=== PATIENT | female | born 1975 | race Caucasian/White ===

== ENCOUNTER → 2017-01-25 | Outpatient (CLI) | payer BC ==
--- NOTE | 2017-01-25 14:16 | US ---
EXAM DATE: 01/25/17 PATIENT'S AGE: 41 Patient: FORTUNATO FAUST Facility: [place], [place] Site Site : 1975 Study: US Extremity Right [id number]/[id number] 11:29:11 AM Ordering Physician: EJ KUMAR Final Report: INDICATION: Pain and swelling right leg. Lumps felt also. TECHNIQUE: Ultrasound venous duplex lower right extremity. Compression venous exam was performed using troncoso-scale, color Doppler, and spectral Doppler imaging. COMPARISON: None. FINDINGS: Sonographic imaging demonstrates the right common femoral, deep femoral, superficial femoral, popliteal, posterior tibial, peroneal and greater saphenous and the contralateral left common femoral veins to be fully compressible with normal color Doppler blood flow. Remainder negative. IMPRESSION: Normal right lower extremity venous ultrasound without evidence of DVT. No sonographic abnormality in the right thigh in the regions of palpable abnormalities Dictated by Eddie Hernandez MD @ Jan 25 2017 1:24PM (Electronic Signature) Report Signed by Proxy and Original Signed Document filed in the Medical Record. ZHANE
== END | disposition home or self-care (01) ==
LOC: MW.US 10:37
PROVIDERS: ATTEND Nurse Practitioner Adult Health
DX: M79.604 Pain in right leg (principal); R60.9 Edema, unspecified
CPT/HCPCS: 93971-26-RT; 93971-RT

== ENCOUNTER → 2017-02-07 | Outpatient (CLI) | payer BC ==
--- NOTE | 2017-02-07 13:06 | MY ---
EXAMINATION: Bilateral digital mammography utilizing CAD. HISTORY: Screening exam. Baseline. FINDINGS: Bilateral predominantly fatty tissue. No suspicious calcifications, masses or architectu ral distortions. No pathologic appearing lymph nodes, no abnormal skin thickening or nipple invers ion. CAD highlighted regions appear normal at this time. IMPRESSION: BI-RADS category I - negative mammogram. Continued screening according to ACR-ACS gu idelines suggested. THE FALSE-NEGATIVE RATE OF MAMMOGRAM IS APPROXIMATELY 10%. MANAGEMENT OF A PALPABLE ABNORMALITY MUST BE BASED UPON CLINICAL GROUNDS. SENSITIVITY FOR DETECTION OF ABNORMALITIES IN DENSE BREASTS IS LOW. NOTE: A letter will be sent to the patient regarding findings. [facility] -- NARA Schwartz [phone] - FAX [phone]
== END | disposition home or self-care (01) ==
LOC: MW.MAM 08:44
PROVIDERS: ATTEND Obstetrics & Gynecology
DX: Z12.31 Encounter for screening mammogram for malignant neoplasm of breast (principal)
CPT/HCPCS: G0202; G0202-26

== ENCOUNTER → 2017-02-09 | Outpatient (CLI) | payer BC ==
--- NOTE | 2017-02-10 08:59 | CR ---
EXAMINATION: Right knee HISTORY: Pain COMPARISON: None TECHNIQUE: 4 views FINDINGS/IMPRESSION: There is no acute osseous abnormality, dislocation, or fracture identified. Bon e mineralization and joint spaces appear preserved. No joint effusion or soft tissue swelling.
== END ==
LOC: MW.DI 11:46
PROVIDERS: ATTEND Surgery
DX: M79.604 Pain in right leg (principal)
CPT/HCPCS: 73564-26-RT; 73564-RT

== ENCOUNTER 2017-02-10 08:09 | Day surgery (SDC) | payer BC ==
[2017-02-09 14:51] LABS: CHLORIDE,CL 106 mmol/L (98-110); SODIUM,NA 140 mmol/L (136-146)
[~2017-02-10 08:09] MED LIST: Fluorescein 5 ML Vial ONE; Lactated Ringers 1,000 ML IV SCH; Sodium Chloride 0.9% 10 ML Syringe FLUSH PRN; Sodium Chloride 0.9% 2.5 ML Syringe FLUSH PRN; ceFAZolin 2 GM in Premix Bag 1 BAG IV ONE
[2017-02-10] MEDS ORDERED: Propofol 200 MG/20 ML SDV ONE (08:18)
[2017-02-10] MEDS ORDERED: Midazolam 1 MG/ML 2 ML SDV ONE (08:18)
[2017-02-10] MEDS ORDERED: Rocuronium 10 MG/ML 10 ML Syringe ONE (08:18)
[2017-02-10] MEDS ORDERED: Ondansetron 4 MG/2 ML SDV ONE (08:18)
[2017-02-10] MEDS ORDERED: Dexamethasone 4 MG/ML 5 ML MDV ONE (08:18)
[2017-02-10] MEDS ORDERED: fentaNYL 250 MCG/5 ML SDV ONE (08:19)
[2017-02-10] MEDS ORDERED: Octyl 2-Cyanoacrylate 1 Tube ONE (08:37)
[2017-02-10] MEDS ORDERED: Clindamycin Phosphate in D5W 600 MG in Premix Bag 50 BAG IV ONE ×2 (08:50)
[2017-02-10] MEDS ORDERED: Scopolamine 1.5 MG Transdermal Patch TRDERM PRN (08:54)
--- NOTE | 2017-02-10 09:04 | PCM.PREANE ---
Preanesthetic Assessment - Anesthesia/Transfusion/Family Hx Anesthesia History: Prior Anesthesia Reaction Type of Anesthesia Reaction: Excessive Nausea/Vomiting Family History of Anesthesia Reaction: No Transfusion History: No Prior Transfusion(s) Intubation History: Unknown - Review of Systems General: No Symptoms Pulmonary: No Symptoms Cardiovascular: No Symptoms Gastrointestinal: No symptoms Neurological: No Symptoms Other: Reports: None - Physical Assessment NPO Status Date: 02/09/17 NPO Status Time: 17:30 O2 Sat by Pulse Oximetry: 95 Respiratory Rate: 16 Vital Signs: Last Vital Signs Temp 36.6 C 02/10/17 08:28 Pulse 87 02/10/17 08:28 Resp 16 02/10/17 08:28 BP 128/89 02/10/17 08:28 Pulse Ox 95 02/10/17 08:28 Height: 1.65 m Weight: 119.748 kg ASA Class: 2 Mental Status: Alert & Oriented x3 Airway Class: Mallampati = 2 Dentition: Reports: Dentures (upper) Thyro-Mental Finger Breadths: 3 Mouth Opening Finger Breadths: 2 ROM/Head Extension: Full Lungs: Clear to auscultation, Normal respiratory effort Cardiovascular: Regular Rate, Regular Rhythm - Lab Values: Laboratory Last Values WBC 7.22 K/uL (4.0-11.0) 02/09/17 14:19 RBC 4.60 M/uL (4.30-5.90) 02/09/17 14:19 Hgb 14.6 g/dL (12.0-16.0) 02/09/17 14:19 Hct 42.0 % (36.0-46.0) 02/09/17 14:19 MCV 91.3 fL (80.0-98.0) 02/09/17 14:19 MCH 31.7 pg (27.0-32.0) 02/09/17 14:19 MCHC 34.8 g/dL (31.0-37.0) 02/09/17 14:19 RDW Std Deviation 46.0 fl (28.0-62.0) 02/09/17 14:19 RDW Coeff of Seda 14 % (11.0-15.0) 02/09/17 14:19 Plt Count 202 K/uL (150-400) 02/09/17 14:19 MPV 8.70 fL (7.40-12.00) 02/09/17 14:19 Nucleated RBC % 0.0 /100WBC 02/09/17 14:19 Nucleated RBCs # 0 K/uL 02/09/17 14:19 Sodium 140 mmol/L (136-146) 02/09/17 14:19 Potassium 4.0 mmol/L (3.5-5.1) 02/09/17 14:19 Chloride 106 mmol/L (98-110) 02/09/17 14:19 Carbon Dioxide 26 mmol/L (21-31) 02/09/17 14:19 BUN 16 mg/dL (6.0-23.0) 02/09/17 14:19 Creatinine 0.7 mg/dL (0.6-1.5) 02/09/17 14:19 Est Cr Clr Drug Dosing 93.25 mL/min 02/09/17 14:19 Estimated GFR (MDRD) > 60.0 ml/min 02/09/17 14:19 Glucose 93 mg/dL (60-110) 02/09/17 14:19 Calcium 9.2 mg/dL (8.8-10.8) 02/09/17 14:19 HCG, Qual NEGATIVE (NEG) 02/09/17 14:19 Blood Type O POSITIVE 02/09/17 14:19 Antibody Screen NEGATIVE 02/09/17 14:19 - Allergies Allergies/Adverse Reactions: Allergies Allergy/AdvReac Type Severity Reaction Status Date / Time aspirin Allergy rashes Verified 01/28/15 04:50 cephalexin Allergy Nausea and Verified 02/08/17 08:54 Vomiting naproxen Allergy Hives Verified 01/28/15 04:50 Sulfa (Sulfonamide Allergy Difficulty Verified 01/28/15 04:50 Antibiotics) Breathing - Blood Blood Available: No - Anesthesia Plan Pre-Op Medication Ordered: None - Acknowledgements Anesthesia Type Planned: General Anesthesia Pt an Appropriate Candidate for the Planned Anesthesia: Yes Alternatives and Risks of Anesthesia Discussed w Pt/Guardian: Yes Pt/Guardian Understands and Agrees with Anesthesia Plan: Yes PreAnesthesia Questionnaire HEENT History: Reports: Other (see below) Other HEENT History: top and bottom dentures, reading glasses Gastrointestinal History: Reports: GERD Genitourinary History: Reports: None 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: Dysfunctional uterine bleeding Endocrine/Metabolic History: Reports: Obesity/BMI 30+ - Past Surgical History Head Surgeries/Procedures: Reports: None HEENT Surgical History: Reports: Cataract surgery, Oral surgery, Other (see below) Other HEENT Surgeries/Procedures: hx eye surgery, radical mastroidectomy left ear x2 - SUBSTANCE USE Smoking Status *Q: Current Every Day Smoker (< 1/2 ppd) Tobacco Use Within Last Twelve Months: Cigarettes Days Per Week of Alcohol Use: 0 Recreational Drug Use History: No - HOME MEDS Home Medications: Home Meds Ondansetron HCl [Zofran] 8 mg PO ASDIRECTED PRN 02/08/17 [History] Suvorexant [Belsomra] 10 mg PO BEDTIME PRN 02/08/17 [History] - CURRENT (IN HOUSE) MEDS Current Meds: Current Medications Lactated Ringer's (Ringers, Lactated) 1,000 mls @ 500 mls/hr IV .BOLUS KELLEE Last Admin: 02/10/17 08:35 Dose: 500 mls/hr Clindamycin Phosphate 600 mg/ (Premix) 50 mls @ 100 mls/hr IV ONETIME ONE Stop: 02/10/17 09:19 Scopolamine (Transderm-Scop) 1.5 mg TRDERM Q72H PRN PRN Reason: Nausea Sodium Chloride (Saline Flush) 10 ml FLUSH ASDIRECTED PRN PRN Reason: Keep Vein Open Sodium Chloride (Saline Flush) 2.5 ml FLUSH ASDIRECTED PRN PRN Reason: Keep Vein Open Discontinued Medications Dexamethasone (Dexamethasone) Confirm Administered Dose 20 mg .ROUTE .STK-MED ONE Stop: 02/10/17 08:19 Fentanyl (Sublimaze) Confirm Administered Dose 250 mcg .ROUTE .STK-MED ONE Stop: 02/10/17 08:20 Fluorescein Sodium (Ak-Fluor) Confirm Administered Dose 5 ml .ROUTE .STK-MED ONE Stop: 02/10/17 07:30 Cefazolin Sodium/Dextrose 2 gm (/ Premix) 50 mls @ 100 mls/hr IV ONETIME ONE Stop: 02/09/17 09:10 Midazolam HCl (Versed 1 Mg/Ml) Confirm Administered Dose 2 mg .ROUTE .STK-MED ONE Stop: 02/10/17 08:19 Octyl Cyanoacrylate (Dermabond Advance) Confirm Administered Dose 1 applic .ROUTE .STK-MED ONE Stop: 02/10/17 08:38 Ondansetron HCl (Zofran) Confirm Administered Dose 4 mg .ROUTE .STK-MED ONE Stop: 02/10/17 08:19 Propofol (Diprivan 20 Ml) Confirm Administered Dose 200 mg .ROUTE .STK-MED ONE Stop: 02/10/17 08:19 Rocuronium [place] (Zemuron) Confirm Administered Dose 100 mg .ROUTE .STK-MED ONE Stop: 02/10/17 08:19
[2017-02-10] MEDS ORDERED: HYDROmorphone 2 MG/ML Syringe ONE (09:48)
[2017-02-10] MEDS ORDERED: Furosemide 40 MG/4 ML VIAL ONE (10:41)
[2017-02-10] MEDS ORDERED: Neostigmine Methylsulfate 1 MG/ML 5 ML Syringe ONE (10:52)
[2017-02-10] MEDS ORDERED: Promethazine 12.5 MG Supp RECTAL PRN (10:53)
[2017-02-10] MEDS ORDERED: Belladonna Alkaloids/Opium 16.2-30 MG Supp RECTAL ONE (10:56)
[2017-02-10] MEDS ORDERED: Ketorolac 30 MG/ML SDV IVPUSH ONE (11:17)
[2017-02-10] MEDS ORDERED: Acetaminophen/oxyCODONE 325-5 MG Tab PO PRN (11:17)
[2017-02-10] MEDS ORDERED: Promethazine 25 MG/ML SDV IM PRN (11:17)
[2017-02-10] MEDS ORDERED: Ondansetron 4 MG/2 ML SDV IVPUSH PRN (11:17)
[2017-02-10] MEDS ORDERED: Ketorolac 30 MG/ML SDV IVPUSH PRN (11:17)
[2017-02-10] MEDS ORDERED: Morphine 4 MG/ML Syringe IVPUSH PRN (11:17)
--- NOTE | 2017-02-10 11:21 | PCM.OPNOTE ---
- General Post-Op/Procedure Note Date of Surgery/Procedure: 02/10/17 Pre Op Diagnosis: Bleeding Post-Op Diagnosis: Same Anesthesia Technique: General ET tube Primary Surgeon: Augustine Lofton Gauge And Instrument Inspector: Anette Alarcon EBL in mLs: 125 Complications: None Condition: Good
[2017-02-10] MEDS: fentaNYL 100 MCG/2 ML SDV IVPUSH PRN ×2 (11:51→12:02)
[2017-02-10] MEDS ORDERED: Promethazine 12.5 MG Supp RECTAL ONE (12:07)
[2017-02-10] MEDS ORDERED: Lactated Ringers 1,000 ML IV SCH (15:30)
[2017-02-10] MEDS: Acetaminophen/HYDROcodone 325-7.5 MG Tab PO PRN (18:53)
--- NOTE | 2017-02-10 19:54 | OR ---
SURGEON: Augustine Lofton MD DATE OF PROCEDURE: PREOPERATIVE DIAGNOSES: 1. Menometrorrhagia. 2. Dysmenorrhea. POSTOPERATIVE DIAGNOSES: 1. Menometrorrhagia. 2. Dysmenorrhea. OPERATION PERFORMED: Total laparoscopic hysterectomy, laparoscopic bilateral salpingectomy preserving both ovaries. ONCOLOGY CONSULTANT: ALVINO Santo. ANESTHESIA: General endotracheal intubation, Petty Oneal and Dr. Granda. ESTIMATED BLOOD LOSS: 125 mL. COMPLICATION: None. FINDINGS: Uterus is about 10-week size. Both ovaries essentially are normal. INDICATION FOR SURGERY: Refer to the admit note. PROCEDURE IN DETAIL: The patient was brought to the OR, properly identified, and after adequate level of general anesthesia, the patient was placed in lithotomy position, prepped and draped in a sterile fashion as usual with an access to the abdomen and vagina. The Das catheter was placed in the bladder, and the manipulated cath lab manager was placed in the vagina and the uterus for manipulation and after inflated appropriately, the operation shifted abdominally. Stab wound done beneath the umbilicus. The Veress needle was placed in the peritoneal cavity and that cavity insufflated with 6 L of carbon dioxide. The skin incision was enlarged to accommodate the trocars and utilizing the Visiport technique, the central trocar was placed under direct vision. Then, three trocars, one 10/12 in the left iliac fossa and two 5 mm trocars one suprapubically and one in the right iliac fossa, was then done under direct vision. The patient was placed in the steep Trendelenburg at this time, and the operation was started by identifying the superior pedicles and the landmark of the pelvis. Using the CHELI-7 Harmonic scapula, the superior pedicle was coagulated and transected preserving both ovary and removing the tubes. The round ligament from both sides was coagulated and transected on both sides and then the anterior leaf of the broad ligament was dissected downward medially pushing the bladder completely away from the operative field. The uterine vessel at the level of the internal os was coagulated and transected with the CHELI-7. Now, at the level of the internal ring of the manipulator, a circular incision in the vaginal mucosa was done with the CHELI-7 and detaching the cervix from its attachment to the vagina. The cervix and uterus were removed vaginally, and pneumoperitoneum re-established by placing vaginal pack in the vagina. We proceeded to close the vaginal cuff laparoscopically using 2-0 PDS interrupted suture. A thorough irrigation of the operative field at this time showed no oozing and no bleeding. While we were closing the vagina, we asked the anesthesiologist to give the patient fluorescein and the Das catheter was removed. Cystoscopy was performed. The bladder was intact. Both ureteric orifices were seen with the dye coming from both of them. Thus, the patency of both ureters was verified. Satisfied with these findings, the procedure was ended. Instrument and sponge count was correct. The patient tolerated the procedure well and went to the recovery room in stable general condition. SANTY / MARTIN /[id number]
--- NOTE | 2017-02-10 21:13 | PCM48HPAN ---
Post Anesthesia Note - EVALUATION WITHIN 48HRS OF ANESTHETIC Vital Signs in Normal Range: Yes Patient Participated in Evaluation: Yes Respiratory Function Stable: Yes Airway Patent: Yes Cardiovascular Function Stable: Yes Hydration Status Stable: Yes Pain Control Satisfactory: Yes Nausea and Vomiting Control Satisfactory: Yes Mental Status Recovered: Yes - COMMENTS/OBSERVATIONS Free Text/Narrative:: Pt reports nausea and vomiting after eating cheeseburger s/p recovery. She was eating DQ blizzard at time of interview and stated it tasted good and was "sitting OK". She denied any other problems associated with anesthesia.
[2017-02-11] MEDS: Acetaminophen/HYDROcodone 325-7.5 MG Tab PO PRN (04:23)
[2017-02-11 06:10] LABS: CHLORIDE,CL 108 mmol/L (98-110); SODIUM,NA 139 mmol/L (136-146)
--- NOTE | 2017-02-11 08:34 | PCM.SURGPN ---
- General Info Date of Service: 02/11/17 Functional Status: Reports: pain controlled - Review of Systems General: Reports: No Symptoms HEENT: Reports: no symptoms Pulmonary: Reports: no symptoms Cardiovascular: Reports: No Symptoms Gastrointestinal: Reports: No symptoms Genitourinary: Reports: no symptoms Musculoskeletal: Reports: no symptoms Skin: Reports: no symptoms Neurological: Reports: No Symptoms Psychiatric: Reports: no symptoms - Patient Data Vitals - most recent: Last Vital Signs Temp 36.9 C 02/11/17 04:00 Pulse 88 02/11/17 04:00 Resp 16 02/11/17 04:00 BP 103/61 02/11/17 04:00 Pulse Ox 90 L 02/11/17 04:00 Weight - most recent: 119.748 kg I&O - last 24 hours: Intake & Output 02/10/17 02/11/17 02/11/17 22:59 06:59 14:59 Intake Total 850 1200 Output Total 800 900 Balance 50 300 Lab Results last 24 hrs: Laboratory Results - last 24 hr 02/11/17 02/11/17 Range/Units 04:50 04:50 WBC 10.58 (4.0-11.0) K/uL RBC 4.15 L (4.30-5.90) M/uL Hgb 12.7 (12.0-16.0) g/dL Hct 38.4 (36.0-46.0) % MCV 92.5 (80.0-98.0) fL MCH 30.6 (27.0-32.0) pg MCHC 33.1 (31.0-37.0) g/dL RDW Std Deviation 47.0 (28.0-62.0) fl RDW Coeff of Seda 14 (11.0-15.0) % Plt Count 224 (150-400) K/uL MPV 9.00 (7.40-12.00) fL Neut % (Auto) 77.5 (48.0-80.0) % Lymph % (Auto) 16.1 (16.0-40.0) % Miner % (Auto) 6.3 (0.0-15.0) % Eos % (Auto) 0.0 (0.0-7.0) % Baso % (Auto) 0.1 (0.0-1.5) % Neut # (Auto) 8.2 H (1.4-5.7) K/uL Lymph # (Auto) 1.7 (0.6-2.4) K/uL Miner # (Auto) 0.7 (0.0-0.8) K/uL Eos # (Auto) 0.0 (0.0-0.7) K/uL Baso # (Auto) 0.0 (0.0-0.1) K/uL Nucleated RBC % 0.0 /100WBC Nucleated RBCs # 0 K/uL Sodium 139 (136-146) mmol/L Potassium 4.3 (3.5-5.1) mmol/L Chloride 108 (98-110) mmol/L Carbon Dioxide 22 (21-31) mmol/L BUN 11 (6.0-23.0) mg/dL Creatinine 0.7 (0.6-1.5) mg/dL Est Cr Clr Drug Dosing 93.25 mL/min Estimated GFR (MDRD) > 60.0 ml/min Glucose 105 (60-110) mg/dL Calcium 8.8 (8.8-10.8) mg/dL Med Orders - Current: Current Medications Hydrocodone Bitart/Acetaminophen (Superior 325-7.5 Mg) 2 tab PO Q4H PRN PRN Reason: Pain Last Admin: 02/11/17 04:23 Dose: 1 tab Fentanyl (Sublimaze) 50 mcg IVPUSH SEECOMMENT PRN PRN Reason: Pain (moderate 4-6) Last Admin: 02/10/17 12:02 Dose: 50 mcg Lactated Ringer's (Ringers, Lactated) 1,000 mls @ 500 mls/hr IV .BOLUS KELLEE Last Admin: 02/10/17 08:35 Dose: 500 mls/hr Lactated Ringer's (Ringers, Lactated) 1,000 mls @ 100 mls/hr IV ASDIRECTED KELLEE Last Infusion: 02/10/17 22:00 Dose: 100 mls/hr Ketorolac Tromethamine (Toradol) 30 mg IVPUSH Q6H PRN PRN Reason: Pain (severe 7-10) Stop: 02/15/17 11:17 Morphine Sulfate (Morphine) 4 mg IVPUSH Q2H PRN PRN Reason: Pain (severe 7-10) Ondansetron HCl (Zofran) 4 mg IVPUSH Q6H PRN PRN Reason: Nausea/Vomiting Last Admin: 02/10/17 17:08 Dose: 4 mg Promethazine HCl (Phenadoz) 12.5 - 25 mg RECTAL ASDIRECTED PRN PRN Reason: Nausea/Vomiting Last Admin: 02/10/17 12:17 Dose: 12.5 mg Promethazine HCl (Phenergan) 25 mg IM Q6H PRN PRN Reason: Nausea/Vomiting Last Admin: 02/10/17 18:57 Dose: 25 mg Scopolamine (Transderm-Scop) 1.5 mg TRDERM Q72H PRN PRN Reason: Nausea Last Admin: 02/10/17 09:00 Dose: 1.5 mg Sodium Chloride (Saline Flush) 10 ml FLUSH ASDIRECTED PRN PRN Reason: Keep Vein Open Sodium Chloride (Saline Flush) 2.5 ml FLUSH ASDIRECTED PRN PRN Reason: Keep Vein Open Discontinued Medications Belladonna Alkaloids/Opium (B & O Supprettes No. 15a) 1 supp RECTAL ONETIME ONE Stop: 02/10/17 10:57 Last Admin: 02/10/17 14:24 Dose: Not Given Dexamethasone (Dexamethasone) Confirm Administered Dose 20 mg .ROUTE .STK-MED ONE Stop: 02/10/17 08:19 Fentanyl (Sublimaze) Confirm Administered Dose 250 mcg .ROUTE .STK-MED ONE Stop: 02/10/17 08:20 Fluorescein Sodium (Ak-Fluor) Confirm Administered Dose 5 ml .ROUTE .STK-MED ONE Stop: 02/10/17 07:30 Furosemide (Lasix) Confirm Administered Dose 40 mg .ROUTE .STK-MED ONE Stop: 02/10/17 10:42 Glycopyrrolate () Confirm Administered Dose 1 mg .ROUTE .STK-MED ONE Stop: 02/10/17 10:53 Hydromorphone HCl (Dilaudid) Confirm Administered Dose 2 mg .ROUTE .STK-MED ONE Stop: 02/10/17 09:49 Cefazolin Sodium/Dextrose 2 gm (/ Premix) 50 mls @ 100 mls/hr IV ONETIME ONE Stop: 02/09/17 09:10 Last Admin: 02/10/17 14:24 Dose: Not Given Clindamycin Phosphate 600 mg/ (Premix) 50 mls @ 100 mls/hr IV ONETIME ONE Stop: 02/10/17 09:19 Last Admin: 02/10/17 09:01 Dose: 100 mls/hr Ketorolac Tromethamine (Toradol) 30 mg IVPUSH ONETIME ONE Stop: 02/10/17 11:18 Last Admin: 02/10/17 12:01 Dose: 30 mg Midazolam HCl (Versed 1 Mg/Ml) Confirm Administered Dose 2 mg .ROUTE .STK-MED ONE Stop: 02/10/17 08:19 Neostigmine Methylsulfate (Neostigmine) Confirm Administered Dose 5 mg .ROUTE .STK-MED ONE Stop: 02/10/17 10:53 Octyl Cyanoacrylate (Dermabond Advance) Confirm Administered Dose 1 applic .ROUTE .STK-MED ONE Stop: 02/10/17 08:38 Ondansetron HCl (Zofran) Confirm Administered Dose 4 mg .ROUTE .STK-MED ONE Stop: 02/10/17 08:19 Oxycodone/Acetaminophen (Percocet 325-5 Mg) 2 tab PO Q4H PRN PRN Reason: Pain (moderate 4-6) Promethazine HCl (Phenadoz) 12.5 mg RECTAL ONETIME ONE Stop: 02/10/17 12:08 Last Admin: 02/10/17 12:13 Dose: 12.5 mg Propofol (Diprivan 20 Ml) Confirm Administered Dose 200 mg .ROUTE .STK-MED ONE Stop: 02/10/17 08:19 Rocuronium [place] (Zemuron) Confirm Administered Dose 100 mg .ROUTE .STK-MED ONE Stop: 02/10/17 08:19 - Exam Wound/Incisions: healing well General: alert, oriented HEENT: Pupils equal Neck: supple Lungs: Clear to auscultation, Normal respiratory effort Cardiovascular: Regular Rate, Regular Rhythm Abdomen: bowel sounds present, soft, no tenderness, no distension Extremities: no edema Skin: warm, dry, intact Neurological: no new focal deficit Psy/Mental Status: alert, normal affect, normal mood - Problem List Review Problem List Initiated/Reviewed/Updated: Yes - My Orders Last 24 Hours: Active Orders 24 hr Category Date Time Status Patient Status [ADT] Routine ADT 02/10/17 11:17 Active Antiembolic Devices [RC] Q12H Care 02/10/17 11:18 Active Communication Order [RC] ROUTINE Care 02/10/17 15:30 Active Notify Provider Vital Signs [RC] ASDIRECTED Care 02/10/17 11:17 Active RT Incentive Spirometry [RC] Q2HWA Care 02/10/17 11:17 Active Up With Assistance [RC] PER UNIT ROUTINE Care 02/10/17 11:17 Active Up ad Delfina [RC] PER UNIT ROUTINE Care 02/10/17 11:17 Active Urinary Catheter Removal [RC] Per Unit Routine Care 02/10/17 11:17 Active Regular Diet [DIET] Diet 02/10/17 Dinner Active Acetaminophen/HYDROcodone [Superior 325-7.5 MG] Med 02/10/17 17:57 Active 2 tab PO Q4H PRN Ketorolac [Toradol] Med 02/10/17 11:17 Active 30 mg IVPUSH Q6H PRN Lactated Ringers [Ringers, Lactated] 1,000 ml Med 02/10/17 15:30 Active IV ASDIRECTED Morphine Med 02/10/17 11:17 Active 4 mg IVPUSH Q2H PRN Ondansetron [Zofran] Med 02/10/17 11:17 Active 4 mg IVPUSH Q6H PRN Promethazine [Phenadoz] Med 02/10/17 10:53 Active 12.5 - 25 mg RECTAL ASDIRECTED PRN Promethazine [Phenergan] Med 02/10/17 11:17 Active 25 mg IM Q6H PRN Scopolamine [Transderm-Scop] Med 02/10/17 08:54 Active 1.5 mg TRDERM Q72H PRN fentaNYL [Sublimaze] Med 02/10/17 10:53 Active 50 mcg IVPUSH SEECOMMENT PRN Peripheral IV Discontinue [OM.PC] Routine Oth 02/10/17 11:17 Ordered Sequential Compression Device [OM.PC] Per Unit Routine Oth 02/10/17 11:17 Ordered Resuscitation Status Routine Resus Stat 02/10/17 11:17 Ordered Medication Orders Hydrocodone Bitart/Acetaminophen (Superior 325-7.5 Mg) 2 tab PO Q4H PRN PRN Reason: Pain Last Admin: 02/11/17 04:23 Dose: 1 tab Admin: 02/10/17 18:53 Dose: 1 tab Fentanyl (Sublimaze) 50 mcg IVPUSH SEECOMMENT PRN PRN Reason: Pain (moderate 4-6) Last Admin: 02/10/17 12:02 Dose: 50 mcg Admin: 02/10/17 11:51 Dose: 50 mcg Lactated Ringer's (Ringers, Lactated) 1,000 mls @ 500 mls/hr IV .BOLUS KELLEE Last Admin: 02/10/17 08:35 Dose: 500 mls/hr Lactated Ringer's (Ringers, Lactated) 1,000 mls @ 100 mls/hr IV ASDIRECTED KELLEE Last Infusion: 02/10/17 22:00 Dose: 100 mls/hr Admin: 02/10/17 15:30 Dose: 100 mls/hr Ketorolac Tromethamine (Toradol) 30 mg IVPUSH Q6H PRN PRN Reason: Pain (severe 7-10) Stop: 02/15/17 11:17 Morphine Sulfate (Morphine) 4 mg IVPUSH Q2H PRN PRN Reason: Pain (severe 7-10) Ondansetron HCl (Zofran) 4 mg IVPUSH Q6H PRN PRN Reason: Nausea/Vomiting Last Admin: 02/10/17 17:08 Dose: 4 mg Promethazine HCl (Phenadoz) 12.5 - 25 mg RECTAL ASDIRECTED PRN PRN Reason: Nausea/Vomiting Last Admin: 02/10/17 12:17 Dose: 12.5 mg Promethazine HCl (Phenergan) 25 mg IM Q6H PRN PRN Reason: Nausea/Vomiting Last Admin: 02/10/17 18:57 Dose: 25 mg Scopolamine (Transderm-Scop) 1.5 mg TRDERM Q72H PRN PRN Reason: Nausea Last Admin: 02/10/17 09:00 Dose: 1.5 mg Sodium Chloride (Saline Flush) 10 ml FLUSH ASDIRECTED PRN PRN Reason: Keep Vein Open Sodium Chloride (Saline Flush) 2.5 ml FLUSH ASDIRECTED PRN PRN Reason: Keep Vein Open - Assessment Assessment (Free Text/Narrative):: Status post T. LH postoperative day #1 on regular diet tolerated very well her vital sign was stable have lab work is within normal limit the patient is going home today post hysterectomy instruction is given - Plan Plan (Free Text/Narrative):: Prescription for Percocet 7.5/325 for postoperative pain is given the patient instructed to come to the office 2 weeks from discharge
[2017-02-11 10:15] VITALS: BP 97/56
== END 2017-02-11 09:41 | disposition home or self-care (01) ==
LOC: MW.SDS 08:09 → MW.MS 11:17 → MW.SDS 02-11 09:41
PROVIDERS: ATTEND Obstetrics & Gynecology
DX: N84.0 Polyp of corpus uteri (principal); N94.6 Dysmenorrhea, unspecified; N92.1 Excessive and frequent menstruation with irregular cycle
CPT/HCPCS: 36415; 58571; 80048; 84703; 85025; 85027; 86850; 86900; 86901; A9270; J1100; J1170; J1885; J1940; J2250; J2405; J2550; J3010; J7120; 00944; 88307; J2704

== ENCOUNTER 2017-09-08 16:26 | Emergency (ER) | payer BC ==
[2017-09-08] MEDS ORDERED: Ibuprofen 800 MG Tab PO ONE (16:42)
--- NOTE | 2017-09-08 17:14 | EDM.PDOC ---
ED HPI GENERAL MEDICAL PROBLEM - General Chief Complaint: Lower Extremity Injury/Pain Stated Complaint: PT HURT RT KNEE Time Seen by Provider: 09/08/17 16:27 Source of Information: Reports: Patient History Limitations: Reports: No Limitations - History of Present Illness INITIAL COMMENTS - FREE TEXT/NARRATIVE: History of present illness: []Patient was in a hotel in [place] and the floor was wet in the bathroom when she slipped and landed on that medial part of her right knee. She has no problem ambulating but has pain on the medial part of her knee. Review of systems: As per history of present illness and below otherwise all systems reviewed and negative. Past medical history: As per history of present illness and as reviewed below otherwise noncontributory. Surgical history: As per history of present illness and as reviewed below otherwise noncontributory. Social history: No reported history of drug or alcohol abuse. Family history: As per history of present illness and as reviewed below otherwise noncontributory. Physical exam: General: Well developed, well nourished in NAD HEENT: Atraumatic, normocephalic, pupils reactive, negative for conjunctival pallor or scleral icterus, mucous membranes moist, throat clear, neck supple, nontender, trachea midline. Lungs: Clear to auscultation, breath sounds equal bilaterally, chest nontender. Heart: S1S2, regular, negative for clicks, rubs, or JVD. Abdomen: Soft, nondistended, nontender. Negative for masses or hepatosplenomegaly. Negative for costovertebral tenderness. Pelvis: Stable nontender. Genitourinary: Deferred. Rectal: Deferred. Extremities: Atraumatic, negative for cords or calf pain. Neurovascular unremarkable. Neuro: Awake, alert, oriented. Cranial nerves II through XII unremarkable. Cerebellum unremarkable. Motor and sensory unremarkable throughout. Exam nonfocal. Diagnostics: []X-ray negative for fracture normal alignment Therapeutics: []Ibuprofen Impression: []Right knee sprain Plan: []Ice, elevate, ibuprofen and follow-up with orthopedics if symptoms persist. Definitive disposition and diagnosis as appropriate pending reevaluation and review of above. Right Knee Pain Score (Numeric/FACES): 8 - Related Data Allergies Allergy/AdvReac Type Severity Reaction Status Date / Time aspirin Allergy rashes Verified 09/08/17 16:36 cephalexin Allergy Nausea and Verified 12/07/17 16:36 Vomiting naproxen Allergy Hives Verified 09/08/17 16:36 Sulfa (Sulfonamide Allergy Difficulty Verified 09/08/17 16:36 Antibiotics) Breathing Home Meds: Home Meds Ondansetron HCl [Zofran] 8 mg PO ASDIRECTED PRN 02/08/17 [History] Past Medical History HEENT History: Reports: Other (See Below) Other HEENT History: top and bottom dentures, reading glasses Gastrointestinal History: Reports: GERD Genitourinary History: Reports: None [employer] History: Reports: Dysfunctional Uterine Bleeding Endocrine/Metabolic History: Reports: Obesity/BMI 30+ - Infectious Disease History Infectious Disease History: Reports: Chicken Pox - Past Surgical History Head Surgeries/Procedures: Reports: None HEENT Surgical History: Reports: Cataract Surgery, Oral Surgery, Other (See Below) Other HEENT Surgeries/Procedures: hx eye surgery, radical mastroidectomy left ear x2 Social & Family History - Family History Family Medical History: Noncontributory - Tobacco Use Smoking Status *Q: Former Smoker Years of Tobacco use: 25 Packs/Tins Daily: 0.5 Used Tobacco, but Quit: Yes Month Tobacco Last Used: 08/2017 - Caffeine Use Caffeine Use: Reports: Coffee - Alcohol Use Days Per Week of Alcohol Use: 0 - Recreational Drug Use Recreational Drug Use: No Review of Systems - Review of Systems Review Of Systems: See Below (See history of present illness) ED EXAM, GENERAL - Physical Exam Exam: See Below (See history of present illness) Course - Vital Signs Last Recorded V/S: Last Vital Signs Temp 97.3 F 09/08/17 16:31 Pulse 92 09/08/17 16:31 Resp 20 09/08/17 16:31 BP 140/90 09/08/17 16:31 Pulse Ox 95 09/08/17 16:31 - Orders/Labs/Meds Orders: Active Orders 24 hr Category Date Time Status Knee 3V Rt [CR] Stat Exams 09/08/17 16:41 Taken Meds: Medications Discontinued Medications Generic Name Dose Route Start Last Admin Trade Name Freq PRN Reason Stop Dose Admin Ibuprofen 800 mg 09/08/17 16:42 09/08/17 16:46 Motrin PO 09/08/17 16:43 800 mg ONETIME ONE Administration Departure - Departure Time of Disposition: 17:23 Disposition: Home, Self-Care 01 Condition: Good Clinical Impression: Right knee sprain Qualifiers: Encounter type: initial encounter Involved ligament of knee: unspecified ligament Qualified Code(s): S83.91XA - Sprain of unspecified site of right knee , initial encounter - Discharge Information Referrals: PCP,None [Primary Care Provider] - Forms: ED Department Discharge Additional Instructions: The following information is given to patients seen in the emergency department who are being discharged to home. This information is to outline your options for follow-up care. We provide all patients seen in our emergency department with a follow-up referral. The need for follow-up, as well as the timing and circumstances, are variable depending upon the specifics of your emergency department visit. If you don't have a primary care physician on staff, we will provide you with a referral. We always advise you to contact your personal physician following an emergency department visit to inform them of the circumstance of the visit and for follow-up with them and/or the need for any referrals to a consulting specialist. The emergency department will also refer you to a specialist when appropriate. This referral assures that you have the opportunity for follow-up care with a specialist. All of these measure are taken in an effort to provide you with optimal care, which includes your follow-up. Under all circumstances we always encourage you to contact your private physician who remains a resource for coordinating your care. When calling for follow-up care, please make the office aware that this follow-up is from your recent emergency room visit. If for any reason you are refused follow-up, please contact the [facility] Emergency Department at and asked to speak to the emergency department charge nurse. Ibuprofen, ice 20 minutes at a time elevate leg as much as possible. Follow-up with orthopedics if symptoms persist after one week. [facility] Professional Building [address] [place] [address], [address] [place] [address] - My Orders Last 24 Hours: My Active Orders 09/08/17 16:41 Knee 3V Rt [CR] Stat - Assessment/Plan Last 24 Hours: My Active Orders 09/08/17 16:41 Knee 3V Rt [CR] Stat
[2017-09-08 17:33] VITALS: BP 137/94
--- NOTE | 2017-09-09 13:00 | CR ---
EXAM DATE: 09/08/17 PATIENT'S AGE: 42 Patient: FORTUNATO FAUST Facility: [place], [place] Site . Site : 1975 Study: XRay Knee [id number]/7/2017 5:07:41 PM Ordering Physician: Doctor Ornelas Final Report: Indication: Fell 4 days ago Technique: Three views right knee Comparison: None Findings: Bones: Alignment is normal. No fractures or bone lesions. Joint spaces: Unremarkable. Soft tissues: Unremarkable. Impression: Negative. Dictated by April Salguero MD @ Sep 08 2017 5:23PM (Electronic Signature) Report Signed by Proxy. ZHANE
== END 2017-09-08 17:30 | disposition home or self-care (01) ==
LOC: MW.ED 16:26
DX: S83.91XA Sprain of unspecified site of right knee, initial encounter (principal); Z87.891 Personal history of nicotine dependence; Z88.1 Allergy status to other antibiotic agents; Z88.2 Allergy status to sulfonamides; Z88.6 Allergy status to analgesic agent; W01.0XXA Fall on same level from slipping, tripping and stumbling without subsequent striking against object, initial encounter; Y92.59 Other trade areas as the place of occurrence of the external cause
CPT/HCPCS: 73562; 99283; A9270